=== PATIENT | female | born 1930 | race Caucasian/White ===

== ENCOUNTER 2017-04-13 11:15 | Inpatient (IN) | payer MEDICARE ==
[2017-04-13] VITALS (12 sets, daily range): BP systolic 112–158
[~2017-04-13] VITALS: Ht 157.5 cm; Wt 44.9 kg
[~2017-04-13 11:15] MED LIST: ACET325T53 PO; AMLO5TAB4 PO; ASCO500T20 PO; CALC-439 PO; DABI110C PO; DILT60TA3 PO; LIP40 PO; MELA3TAB37 PO; METO100T3 PO; OMEP20CA10 PO; SENN8.6T19 PO
[2017-04-13 11:43] LABS: HEMATOCRIT 44.8 % (36-48); HEMOGLOBIN 13.9 g/dL (12.0-16.0); MEAN CORPUSCULAR HEMOGLOBIN 28 pg (27-31); MEAN CORPUSCULAR HGB CONC 31 % (32-36); MEAN CORPUSCULAR VOLUME 91 fL (79.0-98.0); PLATELET COUNT (AUTO) 477 K/uL (130-430); RED BLOOD CELL COUNT(AUTO) 4.95 MIL/uL (4.2-6.2); RED CELL DISTRIBUTION WIDTH 19.5 % (9.0-15.0); WHITE BLOOD COUNT (AUTO) 24.2 K/uL (4.8-10.8)
[2017-04-13 11:52] LABS: ANION GAP 14 (5-15); CALCIUM 9.2 mg/dL (8.4-11.0); CHLORIDE 103 mmol/L (98-107); CREATININE 0.99 mg/dL (0.55-1.30); GLUCOSE 141 mg/dL (70-99); POTASSIUM 3.9 mmol/L (3.5-5.1); SODIUM SERUM 141 mmol/L (136-145); UREA NITROGEN, BLOOD 20 mg/dL (8-21)
[2017-04-13 11:56] LABS: INR 1.1 (0.8-1.2); PROTHROMBIN TIME 12.1 SECS (9.5-12.5)
[2017-04-13 11:57] LABS: ALANINE AMINOTRANSFERASE 21 U/L (12-78); ALBUMIN 2.8 g/dL (3.4-4.8); ASPARTATE AMINOTRANSFERASE 29 U/L (10-37); TOTAL BILIRUBIN 0.8 mg/dL (0.0-1.0); TOTAL PROTEIN, SERUM 7.3 g/dL (6.4-8.3)
[2017-04-13 12:14] LABS: BAND % (MANUAL) 14 % (0-6); EOSINOPHILS % (MANUAL) 0 % (0-7); LYMPHOCYTES % (MANUAL) 18 % (20-46); MONOCYTES % (MANUAL) 3 % (0-11)
[2017-04-13 12:15] LABS: BASOPHILS % (MANUAL) 0 % (0-2)
[2017-04-13] MEDS ORDERED: LEVOFLOXACIN 500 MG/D5W 100 ML IV ONE (12:15)
[2017-04-13] MEDS ORDERED: cefTRIAXone 1 GM IVPB PREMIX 50 ML IV ONE (12:15)
[2017-04-13] MEDS ORDERED: DILTIAZEM HCL 125 MG in D5W 100 ML IV ONE (12:30)
[2017-04-13] MEDS ORDERED: DILTIAZEM HCL 25 MG/5 ML VIAL IVP ONE (12:30)
[2017-04-13 12:35] LABS: BLOOD GAS COHb% 0.8 % (0.5-1.5); BLOOD GAS PH 7.572 (7.350-7.450); BLOOD O2Hb% 93.2 % (94.0-97.0)
[2017-04-13 12:36] LABS: BLOOD GAS HHB 5.7 % (0.0-6.0)
[2017-04-13] MEDS ORDERED: DILTIAZEM HCL 125 MG/25 ML VIAL IV ONE (12:52)
[2017-04-13] MEDS ORDERED: FUROSEMIDE 40 MG/4 ML VIAL IVP ONE (13:15)
[2017-04-13 13:19] LABS: BILIRUBIN,URINE NEGATIVE (NEGATIVE); BLOOD, URINE NEGATIVE (NEGATIVE); CLARITY/URINE CLEAR (CLEAR); COLOR,URINE YELLOW (YELLOW); GLUCOSE,URINE NEGATIVE (NEGATIVE); KETONES,URINE NEGATIVE (NEGATIVE); LEUKOCYTE ESTERASE ,URINE NEGATIVE (NEGATIVE); NITRITE, URINE NEGATIVE (NEGATIVE); PROTEIN URINE TRACE (NEGATIVE); UROBILINOGEN,URINE 0.2 (0.2-1.0)
[2017-04-13 13:30] LABS: BACTERIA,URINE RARE /HPF (None Seen); MUCUS,URINE 1+ /LPF (None Seen); RBC,URINE 0-3 /HPF (0-3); WBC,URINE 0-3 /HPF (0-3)
[2017-04-13] MEDS ORDERED: PIPERACILLIN/TAZO 4.5GM/DEX-IS 100 ML IV SCH ×2 (14:00→22:00)
[2017-04-13] MEDS ORDERED: PIPERACILLIN/TAZO 4.5 GM in NS 100 ML IV ONE (15:00)
[2017-04-13] MEDS: OMEPRAZOLE 20 MG CAPSULE.DR (PriLOSEC) PO SCH ×2 (15:15→20:07)
[2017-04-13] MEDS ORDERED: ACETAMINOPHEN 325 MG TABLET PO PRN (15:15)
[2017-04-13] MEDS ORDERED: SENNOSIDES 8.6 MG TABLET PO PRN (15:15)
[2017-04-13] MEDS: metroNIDAZOLE 500 mg/NS 100 ML IV SCH ×2 (17:45→21:23)
[2017-04-13] MEDS: VANCOMYCIN HCL 250 MG CAPSULE PO SCH ×2 (18:00→20:08)
[2017-04-13] MEDS ORDERED: RIVAROXABAN 15 MG TABLET PO SCH (18:00)
[2017-04-13] MEDS: LACTOBACILLUS RHAMNOSUS GG 1 CAP CAPSULE PO SCH ×2 (18:00→20:08)
[2017-04-13] MEDS: CALCIUM CARBONATE/VITAMIN D3 1 TAB TABLET PO SCH (20:07)
[2017-04-13] MEDS: DILTIAZEM HCL 60 MG TABLET PO SCH (20:08)
[2017-04-13] MEDS ORDERED: CALCIUM CARBONATE/VITAMIN D3 1 TAB TABLET PO SCH (21:00)
[2017-04-13] MEDS ORDERED: ATORVASTATIN 20 MG TABLET PO SCH (21:00)
[2017-04-14] VITALS (17 sets, daily range): BP systolic 97–138
[2017-04-14] MEDS: metroNIDAZOLE 500 mg/NS 100 ML IV SCH (05:13)
[2017-04-14 06:54] LABS: BASOPHILS # (AUTO) 0.1 K/uL (0.0-0.2); BASOPHILS % (AUTO) 0.5 % (0.0-2.0); EOSINOPHILS # (AUTO) 0.2 K/uL (0.0-0.4); EOSINOPHILS % (AUTO) 1.5 % (0.0-4.0); HEMATOCRIT 40.3 % (36-48); LYMPHOCYTES # (AUTO) 3.1 K/uL (1.0-5.5); MEAN CORPUSCULAR HEMOGLOBIN 29 pg (27-31); MEAN CORPUSCULAR HGB CONC 32 % (32-36); MEAN CORPUSCULAR VOLUME 90 fL (79.0-98.0); MONOCYTES # (AUTO) 0.9 K/uL (0.0-1.0); NEUTROPHILS # (AUTO) 11.2 K/uL (1.8-7.7); PLATELET COUNT (AUTO) 386 K/uL (130-430); RED BLOOD CELL COUNT(AUTO) 4.48 MIL/uL (4.2-6.2); WHITE BLOOD COUNT (AUTO) 15.5 K/uL (4.8-10.8)
[2017-04-14 07:02] LABS: ANION GAP 5 (5-15); CHLORIDE 104 mmol/L (98-107); CREATININE 0.75 mg/dL (0.55-1.30); GLUCOSE 92 mg/dL (70-99); SODIUM SERUM 140 mmol/L (136-145); UREA NITROGEN, BLOOD 21 mg/dL (8-21)
[2017-04-14 07:19] LABS: POTASSIUM 2.9 mmol/L (3.5-5.1)
[2017-04-14] MEDS ORDERED: KCL 40 mEq in 100 mL (PREMIX) 100 ML IV ONE (07:45)
[2017-04-14] MEDS ORDERED: FUROSEMIDE 20 MG/2 ML VIAL IVP ONE (08:15)
[2017-04-14] MEDS ORDERED: amLODIPine BESYLATE 5 MG TABLET PO SCH (09:00)
[2017-04-14] MEDS ORDERED: ASCORBIC ACID 500 MG TABLET PO SCH (09:00)
[2017-04-14] MEDS: OMEPRAZOLE 20 MG CAPSULE.DR (PriLOSEC) PO SCH (09:11)
[2017-04-14] MEDS: DILTIAZEM HCL 60 MG TABLET PO SCH (09:12)
[2017-04-14] MEDS: LACTOBACILLUS RHAMNOSUS GG 1 CAP CAPSULE PO SCH (09:12)
[2017-04-14] MEDS: VANCOMYCIN HCL 250 MG CAPSULE PO SCH ×2 (09:13→12:49)
[2017-04-14] MEDS: CALCIUM CARBONATE/VITAMIN D3 1 TAB TABLET PO SCH (09:14)
[2017-04-14] MEDS ORDERED: POTASSIUM CHLORIDE 20 MEQ TAB.PRT.SR PO ONE (12:45)
[2017-04-14] MEDS ORDERED: DILTIAZEM HCL 60 MG TABLET ONE ×2 (13:45→15:37)
[2017-04-14] MEDS ORDERED: POTASSIUM CHLORIDE 20 MEQ TAB.PRT.SR ONE (15:45)
[2017-04-14] MEDS ORDERED: cefTRIAXone 1 GM in D5W 50 ML IV SCH (17:30)
[2017-04-17] MEDS ORDERED: DILTIAZEM HCL 60 MG TABLET PO SCH (13:00)
== END 2017-04-14 16:40 | disposition short-term general hospital (02) | DRG 871 ==
LOC: SED 11:15 → SIC 13:49
PROVIDERS: ADMIT Family Medicine; ATTEND Family Medicine
DX: A41.9 Sepsis, unspecified organism (principal); I50.33 Acute on chronic diastolic (congestive) heart failure; J96.01 Acute respiratory failure with hypoxia; J69.0 Pneumonitis due to inhalation of food and vomit; R64 Cachexia; J15.9 Unspecified bacterial pneumonia; A04.7 Enterocolitis due to Clostridium difficile; I11.0 Hypertensive heart disease with heart failure; N39.0 Urinary tract infection, site not specified; I69.354 Hemiplegia and hemiparesis following cerebral infarction affecting left non-dominant side; Z68.1 Body mass index [BMI] 19.9 or less, adult; F03.90 Unspecified dementia, unspecified severity, without behavioral disturbance, psychotic disturbance, mood disturbance, and anxiety; I48.2 Chronic atrial fibrillation; E78.5 Hyperlipidemia, unspecified; Z79.899 Other long term (current) drug therapy; Z87.01 Personal history of pneumonia (recurrent); Z86.19 Personal history of other infectious and parasitic diseases; Z79.01 Long term (current) use of anticoagulants
CPT/HCPCS: 36415; 36600; 71010; 80048; 80053; 80162-TC; 81000-TC; 82803-TC; 83605; 83880; 84132-TC; 84484; 85007; 85025; 85027; 85610-TC; 85730-TC; 87040-TC; 87081; 93005; 93306; 96365; 96367; 96375; 99291; J0696; J1940; J1956; J2543; J3480; J3490; J7060

== ENCOUNTER 2018-02-12 12:32 | Inpatient (IN) | payer MEDICARE ==
[~2018-02-12] VITALS: Ht 152.4 cm; Wt 48.1 kg
[~2018-02-12 12:32] MED LIST changes: -AMLO5TAB4 PO; -DILT60TA3 PO; +FURO-150 PO; +LACT10SO66 PO; +LISI-600 PO; +LORA-258 PO; +MAGN400O4 PO; -METO100T3 PO; +METO25TA6 PO; +SER25 PO; +ZIN220 PO
[2018-02-12 12:50] VITALS: BP_SYST 117
[2018-02-12] MEDS ORDERED: AMLO5TAB4 PO (13:11)
[2018-02-12] MEDS ORDERED: DILT60TA3 PO (13:11)
[2018-02-12] MEDS ORDERED: LEVOFLOXACIN 500 MG/D5W 100 ML IV ONE (13:45)
[2018-02-12] MEDS ORDERED: ALBUTEROL SULFATE 0.083% 2.5 MG/3 ML VIAL.NEB INH ONE (13:45)
[2018-02-12 15:00] LABS: HEMATOCRIT 49.2 % (36-48); HEMOGLOBIN 16.2 g/dL (12.0-16.0); MEAN CORPUSCULAR HEMOGLOBIN 31 pg (27-31); MEAN CORPUSCULAR HGB CONC 33 % (32-36); MEAN CORPUSCULAR VOLUME 95 fL (79.0-98.0); PLATELET COUNT (AUTO) 375 K/uL (130-430); RED BLOOD CELL COUNT(AUTO) 5.19 MIL/uL (4.2-6.2); RED CELL DISTRIBUTION WIDTH 15.6 % (9.0-15.0); WHITE BLOOD COUNT (AUTO) 13.4 K/uL (4.8-10.8)
[2018-02-12 15:06] LABS: INR 1.2 (0.8-1.2)
[2018-02-12 15:08] LABS: ANION GAP 11 (5-15); CHLORIDE 104 mmol/L (98-107); CREATININE 0.96 mg/dL (0.55-1.30); GLUCOSE 121 mg/dL (70-99); POTASSIUM 3.8 mmol/L (3.5-5.1); SODIUM SERUM 138 mmol/L (136-145); UREA NITROGEN, BLOOD 27 mg/dL (8-21)
[2018-02-12 15:24] LABS: ALANINE AMINOTRANSFERASE 42 U/L (12-78); ALBUMIN 2.7 g/dL (3.4-4.8); ASPARTATE AMINOTRANSFERASE 36 U/L (10-37); TOTAL BILIRUBIN 0.6 mg/dL (0.0-1.0)
[2018-02-12 15:41] LABS: BILIRUBIN,URINE NEGATIVE (NEGATIVE); BLOOD, URINE NEGATIVE (NEGATIVE); CLARITY/URINE CLEAR (CLEAR); COLOR,URINE YELLOW (YELLOW); GLUCOSE,URINE NEGATIVE (NEGATIVE); KETONES,URINE NEGATIVE (NEGATIVE); LEUKOCYTE ESTERASE ,URINE NEGATIVE (NEGATIVE); NITRITE, URINE NEGATIVE (NEGATIVE); PROTEIN URINE NEGATIVE (NEGATIVE); UROBILINOGEN,URINE 0.2 (0.2-1.0)
[2018-02-12] MEDS ORDERED: NACL 0.9% 1,000 ML IV ONE (16:00)
[2018-02-12 16:18] LABS: BAND % (MANUAL) 1 % (0-6); BASOPHILS % (MANUAL) 0 % (0-2); EOSINOPHILS % (MANUAL) 3 % (0-7); LYMPHOCYTES % (MANUAL) 9 % (20-46); MONOCYTES % (MANUAL) 8 % (0-11)
[2018-02-12] MEDS ORDERED: NS 500 ML IV ONE (19:00)
[2018-02-12] MEDS ORDERED: ALBUTEROL SULFATE 0.083% 2.5 MG/3 ML VIAL.NEB INH PRN (19:15)
[2018-02-12] MEDS ORDERED: IPRATROPIUM BROM 0.5 MG/2.5 ML VIAL.NEB (ATROVENT) INH PRN (19:15)
[2018-02-12] MEDS: IPRATROPIUM BROM 0.5 MG/2.5 ML VIAL.NEB (ATROVENT) INH SCH (19:57)
[2018-02-12] MEDS: ALBUTEROL SULFATE 0.083% 2.5 MG/3 ML VIAL.NEB INH SCH (19:57)
[2018-02-12 20:12] VITALS: BP_SYST 126
[2018-02-12 20:33] VITALS: BP_SYST 132
[2018-02-12] MEDS ORDERED: PIPERACILLIN/TAZOBACTAM 3.375 GM/VIAL (ZOSYN) IV ONE (21:07)
[2018-02-12] MEDS: DILTIAZEM HCL 60 MG TABLET PO SCH (21:42)
[2018-02-12] MEDS: QUEtiapine FUMARATE 25 MG TABLET PO SCH (21:43)
[2018-02-12] MEDS: METOPROLOL TARTRATE 25 MG TABLET PO SCH (21:43)
[2018-02-12] MEDS: PIPERACILLIN/TAZO 3.375/DEX-IS 50 ML IV SCH (21:43)
[2018-02-12] MEDS: NACL 0.9% 1,000 ML IV SCH (21:50)
[2018-02-13] VITALS (12 sets, daily range): BP systolic 86–134
[2018-02-13] MEDS: IPRATROPIUM BROM 0.5 MG/2.5 ML VIAL.NEB (ATROVENT) INH SCH ×4 (00:35→19:42)
[2018-02-13] MEDS: ALBUTEROL SULFATE 0.083% 2.5 MG/3 ML VIAL.NEB INH SCH ×4 (00:35→19:42)
[2018-02-13] MEDS: PIPERACILLIN/TAZO 3.375/DEX-IS 50 ML IV SCH ×4 (02:54→21:14)
[2018-02-13] MEDS: DILTIAZEM HCL 60 MG TABLET PO SCH ×2 (08:06→21:33)
[2018-02-13] MEDS: FUROSEMIDE 20 MG TABLET PO SCH (08:15)
[2018-02-13] MEDS: QUEtiapine FUMARATE 25 MG TABLET PO SCH ×2 (08:17→21:34)
[2018-02-13] MEDS: METOPROLOL TARTRATE 25 MG TABLET PO SCH ×2 (08:17→21:34)
[2018-02-13] MEDS: LISINOPRIL 20 MG TABLET PO SCH (08:17)
[2018-02-13] MEDS ORDERED: amLODIPine BESYLATE 5 MG TABLET PO SCH (09:00)
[2018-02-13] MEDS: NACL 0.9% 1,000 ML IV SCH (14:37)
[2018-02-13] MEDS ORDERED: DILTIAZEM HCL 25 MG/5 ML VIAL IVP ONE ×2 (15:00→18:45)
[2018-02-13] MEDS ORDERED: DILTIAZEM HCL 25 MG/5 ML VIAL ONE (15:02)
[2018-02-13] MEDS: RIVAROXABAN 10 MG TABLET PO SCH (17:32)
[2018-02-13] MEDS ORDERED: DIGOXIN 0.5 MG/2 ML AMP IVP SCH (21:00)
[2018-02-14] VITALS (24 sets, daily range): BP systolic 73–120
[2018-02-14] MEDS: ALBUTEROL SULFATE 0.083% 2.5 MG/3 ML VIAL.NEB INH SCH ×4 (00:52→19:27)
[2018-02-14] MEDS: IPRATROPIUM BROM 0.5 MG/2.5 ML VIAL.NEB (ATROVENT) INH SCH ×4 (00:53→19:27)
[2018-02-14] MEDS: PIPERACILLIN/TAZO 3.375/DEX-IS 50 ML IV SCH ×4 (02:05→20:02)
[2018-02-14 06:53] LABS: BASOPHILS % (AUTO) 0.4 % (0.0-2.0); EOSINOPHILS # (AUTO) 0.6 K/uL (0.0-0.4); EOSINOPHILS % (AUTO) 5.6 % (0.0-4.0); HEMATOCRIT 37.7 % (36-48); HEMOGLOBIN 12.7 g/dL (12.0-16.0); LYMPHOCYTES # (AUTO) 2.4 K/uL (1.0-5.5); LYMPHOCYTES % (AUTO) 20.5 % (20.5-51.5); MEAN CORPUSCULAR HEMOGLOBIN 31 pg (27-31); MEAN CORPUSCULAR HGB CONC 34 % (32-36); MEAN CORPUSCULAR VOLUME 93 fL (79.0-98.0); MONOCYTES # (AUTO) 1.2 K/uL (0.0-1.0); MONOCYTES % (AUTO) 10.4 % (1.7-9.3); NEUTROPHILS # (AUTO) 7.3 K/uL (1.8-7.7); NEUTROPHILS % (AUTO) 63.1 % (40.0-70.0); PLATELET COUNT (AUTO) 290 K/uL (130-430); RED BLOOD CELL COUNT(AUTO) 4.04 MIL/uL (4.2-6.2); RED CELL DISTRIBUTION WIDTH 14.7 % (9.0-15.0); WHITE BLOOD COUNT (AUTO) 11.5 K/uL (4.8-10.8)
[2018-02-14 06:54] LABS: ALANINE AMINOTRANSFERASE 25 U/L (12-78); ALBUMIN 1.7 g/dL (3.4-4.8); ANION GAP 8 (5-15); ASPARTATE AMINOTRANSFERASE 21 U/L (10-37); CHLORIDE 106 mmol/L (98-107); CHOLESTEROL 129 mg/dL (<200); CREATININE 0.95 mg/dL (0.55-1.30); GLUCOSE 98 mg/dL (70-99); HDL CHOLESTEROL 31 mg/dL (>55); LDL CHOLESTEROL 87 mg/dL (<100); POTASSIUM 3.3 mmol/L (3.5-5.1); SODIUM SERUM 137 mmol/L (136-145); THYROID STIMULATING HORMONE 0.98 uIu/mL (0.34-4.82); TOTAL BILIRUBIN 0.6 mg/dL (0.0-1.0); TRIGLYCERIDES 58 mg/dL (30-150); UREA NITROGEN, BLOOD 22 mg/dL (8-21)
[2018-02-14] MEDS: FUROSEMIDE 20 MG TABLET PO SCH (08:14)
[2018-02-14] MEDS: LISINOPRIL 20 MG TABLET PO SCH (08:15)
[2018-02-14] MEDS: QUEtiapine FUMARATE 25 MG TABLET PO SCH ×2 (08:15→20:03)
[2018-02-14] MEDS: DILTIAZEM HCL 60 MG TABLET PO SCH ×3 (10:06→20:03)
[2018-02-14] MEDS: NACL 0.9% 1,000 ML IV SCH (11:22)
[2018-02-14] MEDS: METOPROLOL TARTRATE 50 MG TABLET PO SCH ×2 (11:22→20:02)
[2018-02-14] MEDS: RIVAROXABAN 10 MG TABLET PO SCH (18:28)
[2018-02-15] VITALS (24 sets, daily range): BP systolic 89–143
[2018-02-15] MEDS: IPRATROPIUM BROM 0.5 MG/2.5 ML VIAL.NEB (ATROVENT) INH SCH ×4 (00:45→20:10)
[2018-02-15] MEDS: ALBUTEROL SULFATE 0.083% 2.5 MG/3 ML VIAL.NEB INH SCH ×4 (00:45→20:10)
[2018-02-15] MEDS: NACL 0.9% 1,000 ML IV SCH ×3 (03:50→21:29)
[2018-02-15] MEDS: PIPERACILLIN/TAZO 3.375/DEX-IS 50 ML IV SCH ×4 (03:51→21:20)
[2018-02-15 06:33] LABS: ALANINE AMINOTRANSFERASE 22 U/L (12-78); ALBUMIN 1.7 g/dL (3.4-4.8); ANION GAP 10 (5-15); ASPARTATE AMINOTRANSFERASE 20 U/L (10-37); CHLORIDE 104 mmol/L (98-107); CREATININE 0.73 mg/dL (0.55-1.30); GLUCOSE 86 mg/dL (70-99); POTASSIUM 3.3 mmol/L (3.5-5.1); SODIUM SERUM 137 mmol/L (136-145); TOTAL BILIRUBIN 0.8 mg/dL (0.0-1.0); UREA NITROGEN, BLOOD 15 mg/dL (8-21)
[2018-02-15 06:53] LABS: BASOPHILS # (AUTO) 0.1 K/uL (0.0-0.2); BASOPHILS % (AUTO) 0.5 % (0.0-2.0); EOSINOPHILS # (AUTO) 1.1 K/uL (0.0-0.4); EOSINOPHILS % (AUTO) 10.8 % (0.0-4.0); HEMATOCRIT 39.2 % (36-48); HEMOGLOBIN 12.8 g/dL (12.0-16.0); LYMPHOCYTES # (AUTO) 1.9 K/uL (1.0-5.5); LYMPHOCYTES % (AUTO) 18.5 % (20.5-51.5); MEAN CORPUSCULAR HEMOGLOBIN 31 pg (27-31); MEAN CORPUSCULAR HGB CONC 33 % (32-36); MEAN CORPUSCULAR VOLUME 95 fL (79.0-98.0); MONOCYTES # (AUTO) 1.4 K/uL (0.0-1.0); MONOCYTES % (AUTO) 14.1 % (1.7-9.3); NEUTROPHILS # (AUTO) 5.8 K/uL (1.8-7.7); NEUTROPHILS % (AUTO) 56.1 % (40.0-70.0); PLATELET COUNT (AUTO) 317 K/uL (130-430); RED BLOOD CELL COUNT(AUTO) 4.12 MIL/uL (4.2-6.2); RED CELL DISTRIBUTION WIDTH 14.9 % (9.0-15.0); WHITE BLOOD COUNT (AUTO) 10.3 K/uL (4.8-10.8)
[2018-02-15] MEDS: METOPROLOL TARTRATE 50 MG TABLET PO SCH ×2 (08:57→21:21)
[2018-02-15] MEDS: FUROSEMIDE 20 MG TABLET PO SCH (08:58)
[2018-02-15] MEDS: DILTIAZEM HCL 60 MG TABLET PO SCH ×3 (08:58→21:21)
[2018-02-15] MEDS: QUEtiapine FUMARATE 25 MG TABLET PO SCH ×2 (08:59→21:21)
[2018-02-15] MEDS: LISINOPRIL 20 MG TABLET PO SCH (08:59)
[2018-02-15] MEDS ORDERED: LIDOCAINE 1% 10 MG/ML, 20 ML MDV INJ ONE (11:00)
[2018-02-15] MEDS ORDERED: LIDOCAINE 1%, 20 ML MDV 20 ML ONE (11:23)
[2018-02-15 14:37] LABS: SOURCE/TYPE ,BODY FLUID THORACENTESIS
[2018-02-15 14:38] LABS: APPEARANCE,SPUN,BODY FLUID CLEAR (CLEAR); BF APPEARANCE UNSPUN BLOODY (CLEAR); BODY FLUID COLOR RED (LT YELLOW); BODY FLUID SOURCE/ TYPE PLEURAL; BODY FLUID TOTAL VOLUME 1300 mL; EOSINOPHIL, BODY FLUID 8 %; LYMPHOCYTES, BODY FLUID 82 %; MONOCYTES,BODY FLUID 1 %; NEUTROPHIL, BODY FLUID 9 %; RBC, BODY FLUID 49289 /uL; WBC, BODY FLUID 9533 /uL
[2018-02-15 17:55] LABS: BODY FLUID GLUCOSE 88 mg/dL; BODY FLUID TOTAL PROTEIN 3.4 g/dL
[2018-02-15] MEDS: RIVAROXABAN 10 MG TABLET PO SCH (18:34)
[2018-02-16] MEDS: PIPERACILLIN/TAZO 3.375/DEX-IS 50 ML IV SCH ×4 (01:37→20:45)
[2018-02-16] MEDS: IPRATROPIUM BROM 0.5 MG/2.5 ML VIAL.NEB (ATROVENT) INH SCH ×4 (02:07→19:57)
[2018-02-16] MEDS: ALBUTEROL SULFATE 0.083% 2.5 MG/3 ML VIAL.NEB INH SCH ×4 (02:07→19:57)
[2018-02-16 06:39] LABS: BASOPHILS % (AUTO) 0.6 % (0.0-2.0); EOSINOPHILS # (AUTO) 0.7 K/uL (0.0-0.4); EOSINOPHILS % (AUTO) 8.8 % (0.0-4.0); HEMATOCRIT 40.2 % (36-48); HEMOGLOBIN 13.1 g/dL (12.0-16.0); LYMPHOCYTES # (AUTO) 1.7 K/uL (1.0-5.5); MEAN CORPUSCULAR HEMOGLOBIN 31 pg (27-31); MEAN CORPUSCULAR HGB CONC 33 % (32-36); MEAN CORPUSCULAR VOLUME 94 fL (79.0-98.0); MONOCYTES # (AUTO) 0.8 K/uL (0.0-1.0); MONOCYTES % (AUTO) 10.1 % (1.7-9.3); NEUTROPHILS # (AUTO) 4.2 K/uL (1.8-7.7); NEUTROPHILS % (AUTO) 57.5 % (40.0-70.0); PLATELET COUNT (AUTO) 382 K/uL (130-430); RED BLOOD CELL COUNT(AUTO) 4.25 MIL/uL (4.2-6.2); RED CELL DISTRIBUTION WIDTH 14.7 % (9.0-15.0); WHITE BLOOD COUNT (AUTO) 7.4 K/uL (4.8-10.8)
[2018-02-16 06:46] LABS: ALANINE AMINOTRANSFERASE 19 U/L (12-78); ALBUMIN 1.8 g/dL (3.4-4.8); ANION GAP 6 (5-15); ASPARTATE AMINOTRANSFERASE 16 U/L (10-37); CALCIUM 7.8 mg/dL (8.4-11.0); CHLORIDE 109 mmol/L (98-107); CREATININE 0.84 mg/dL (0.55-1.30); GLUCOSE 96 mg/dL (70-99); POTASSIUM 3.1 mmol/L (3.5-5.1); SODIUM SERUM 140 mmol/L (136-145); TOTAL BILIRUBIN 0.7 mg/dL (0.0-1.0); UREA NITROGEN, BLOOD 14 mg/dL (8-21)
[2018-02-16 08:27] VITALS: BP_SYST 115
[2018-02-16] MEDS: DILTIAZEM HCL 60 MG TABLET PO SCH ×3 (08:53→20:47)
[2018-02-16] MEDS: QUEtiapine FUMARATE 25 MG TABLET PO SCH ×2 (08:53→20:46)
[2018-02-16] MEDS: METOPROLOL TARTRATE 50 MG TABLET PO SCH (08:54)
[2018-02-16] MEDS: FUROSEMIDE 20 MG TABLET PO SCH (08:54)
[2018-02-16] MEDS ORDERED: POTASSIUM CHLORIDE 20 MEQ/PKT PACKET PO ONE (10:30)
[2018-02-16 12:58] VITALS: BP_SYST 104
[2018-02-16] MEDS: NACL 0.9% 1,000 ML IV SCH (16:17)
[2018-02-16 16:51] VITALS: BP_SYST 113
[2018-02-16] MEDS: RIVAROXABAN 10 MG TABLET PO SCH (18:05)
[2018-02-16 19:10] VITALS: BP_SYST 121
[2018-02-16] MEDS ORDERED: POTASSIUM CHLORIDE 20 MEQ/PKT PACKET PO SCH (21:00)
[2018-02-16] MEDS ORDERED: METOPROLOL TARTRATE 50 MG TABLET PO SCH (21:00)
[2018-02-16 22:52] VITALS: BP_SYST 102
[2018-02-16 22:58] VITALS: BP_SYST 102
== END 2018-02-17 00:30 | disposition short-term general hospital (02) | DRG 871 ==
LOC: SED 12:32 → STU 18:50 → SIC 02-13 19:17 → STU 02-15 21:51
PROVIDERS: ADMIT Internal Medicine Hospice and Palliative Medicine; ATTEND Internal Medicine Hospice and Palliative Medicine
DX: A41.9 Sepsis, unspecified organism (principal); J69.0 Pneumonitis due to inhalation of food and vomit; J96.01 Acute respiratory failure with hypoxia; E43 Unspecified severe protein-calorie malnutrition; I69.354 Hemiplegia and hemiparesis following cerebral infarction affecting left non-dominant side; I50.30 Unspecified diastolic (congestive) heart failure; F03.90 Unspecified dementia, unspecified severity, without behavioral disturbance, psychotic disturbance, mood disturbance, and anxiety; I11.0 Hypertensive heart disease with heart failure; I48.2 Chronic atrial fibrillation; R13.10 Dysphagia, unspecified; Z74.01 Bed confinement status; Z79.01 Long term (current) use of anticoagulants; Z68.20 Body mass index [BMI] 20.0-20.9, adult
CPT/HCPCS: 32555; 36415; 36600; 70360-TC; 71045; 80053; 80061; 81003; 82803-TC; 82947-TC; 83605; 83880; 84157-TC; 84443-TC; 84484; 85007; 85025; 85027; 85610-TC; 87040-TC; 87070-TC; 87081; 87116; 89051-TC; 89060-TC; 92610-GN; 93005; 93306; 94640; 94760; 96361; 96365; 99285; C1729; J1160; J1956; J2001; J2543; J3490; J7030; J7040; J7613